=== PATIENT | female | born 1945 | race Caucasian/White ===

== ENCOUNTER 2017-11-27 12:59 | Outpatient (CLI) | payer MEDICARE, MEDICAID ==
[~2017-11-27] VITALS: Ht 152.4 cm; Wt 72.6 kg
[~2017-11-27 12:59] MED LIST: HYDR-565 PO; IBUP-1984 PO; LIDO700A5 TP; LOSA1TAB39 PO; OMEP20CA4 PO; PRED5TAB PO
[2017-11-27] MEDS ORDERED: HYDR-565 PO (14:47)
[2017-11-27] MEDS ORDERED: CALC-950 PO (14:47)
[2017-11-27] MEDS ORDERED: LOSA1TAB36 PO (14:47)
[2017-11-27] MEDS ORDERED: PRE1T PO (14:47)
[2017-11-27] MEDS ORDERED: DULO20CA50 PO (14:47)
[2017-11-27] MEDS ORDERED: IRON1CAP34 PO (14:47)
[2017-11-27] MEDS ORDERED: ASPI-529 PO (14:47)
[2017-11-27 15:18] LABS: PRE OP PROTIME 10.3 SECONDS (9.0-12.0)
[2017-11-27 15:22] LABS: ALBUMIN 3.7 G/DL (3.4-5.0); ALKALINE PHOSPHATASE 64 IU/L (46-116); BLOOD UREA NITROGEN 12 MG/DL (7-18); BUN/CREATININE RATIO 9.4 (6.6-38.0); CALCIUM 8.7 MG/DL (8.5-10.1); CHLORIDE 90 MMOL/L (99-107); CREATININE 1.27 MG/DL (0.40-0.90); PRE OP ALT 17 U/L (30-65); PRE OP ANION GAP 11 (8-16); PRE OP AST 18 U/L (10-37); PRE OP BILIRUB, TOTAL 0.4 MG/DL (0.0-1.0); PRE OP GLUCOSE 122 MG/DL (70-104); PRE OP POTASSIUM 3.7 MMOL/L (3.4-5.1); TOTAL CARBON DIOXIDE 22.7 MMOL/L (24-32); TOTAL PROTEIN 7.4 G/DL (6.4-8.2); eGFR 41 ML/MIN
[2017-11-27 15:26] LABS: BASOPHILS % (AUTO) 0.2 % (0-1); EOSINOPHILS % (AUTO) 0.2 % (0-6); LYMPHOCYTES # (AUTO) 1.1 X10'3 (1.1-4.8); LYMPHOCYTES % (AUTO) 7.7 % (21-51); MEAN CORPUSCULAR HEMOGLOBIN 26.5 PG (27.0-31.0); MEAN CORPUSCULAR VOLUME 82.8 FL (78-98); MEAN PLATELET VOLUME 7.8 FL (7.4-10.4); MONOCYTES # (AUTO) 0.7 X10'3 (0-0.9); NEUTROPHILS # (AUTO) 12.3 X10'3 (1.8-7.7); NEUTROPHILS % (AUTO) 86.9 % (42-75); PRE OP HEMATOCRIT 38.4 % (35.0-45.0); PRE OP HEMOGLOBIN 12.3 g/dL (12.0-16.0); PRE OP PLATELET COUNT 433 X10'3 (140-440); PRE OP SODIUM 124 MMOL/L (135-145); RED BLOOD COUNT 4.63 X10'6 (4.20-5.60); RED CELL DISTRIBUTION WIDTH 18.7 % (11.5-14.5)
[2017-12-07] MEDS ORDERED: HYDR-568 PO (12:47)
[2017-12-08] MEDS ORDERED: ringers solution, lacted 1,000 ML IV SCH (05:00)
[2017-12-08] MEDS ORDERED: Cefazolin 2GM/50ML dext iso,osmotic IVPB IV ONE (05:30)
[2017-12-08] MEDS ORDERED: tranexamic acid inj. 700 MG in normal saline 100ml IV soln 93 ML IV ONE ×2 (05:30→06:30)
[2017-12-08] MEDS ORDERED: VANCOMYCIN INJ 1000 MG in NORMAL SALINE 250ml IV.SOLN IV ONE (05:30)
[2017-12-08] MEDS ORDERED: famotidine 20mg tablet PO ONE (05:30)
== END 2017-11-27 23:59 | disposition home or self-care (01) ==
LOC: PRE-OP 12:59 → EDSTATUS 12-08 13:30
PROVIDERS: ATTEND Orthopaedic Surgery
DX: Z01.812 Encounter for preprocedural laboratory examination (principal); M25.512 Pain in left shoulder; M19.012 Primary osteoarthritis, left shoulder
CPT/HCPCS: 36415; 80053; 85025; 85610; 85730; 86885; 86900; 86901; 87070

== ENCOUNTER 2019-02-08 05:41 | Inpatient (IN) | payer MEDICARE, MEDICAID ==
[2019-01-29 12:27] LABS: CLARITY,URINE SLIGHTLY CLOUDY (Clear); COLOR,URINE YELLOW (Yellow); GLUCOSE, URINE NEGATIVE (Neg); KETONES,URINE NEGATIVE (Neg); LEUKOCYTE ESTERASE ,URINE MODERATE (Neg); NITRITES, URINE NEGATIVE (Neg); OCCULT BLOOD,URINE NEGATIVE (Neg); PROTEIN,URINE NEGATIVE (Neg); UROBILINOGEN,URINE 0.2 E.U/dL (0.2-1.0)
[2019-01-29 12:29] LABS: BASOPHILS # (AUTO) 0.1 X10'3 (0-0.2); BASOPHILS % (AUTO) 0.9 % (0-1); EOSINOPHILS # (AUTO) 0.3 X10'3 (0-0.9); EOSINOPHILS % (AUTO) 2.6 % (0-6); LYMPHOCYTES # (AUTO) 2.7 X10'3 (1.1-4.8); LYMPHOCYTES % (AUTO) 25.4 % (21-51); MEAN CORPUSCULAR HEMOGLOBIN 31.8 PG (27.0-31.0); MEAN CORPUSCULAR HGB CONC 33.5 g/dL (33.0-36.5); MEAN CORPUSCULAR VOLUME 94.8 FL (78-98); MEAN PLATELET VOLUME 7.1 FL (7.4-10.4); MONOCYTES # (AUTO) 0.9 X10'3 (0-0.9); NEUTROPHILS # (AUTO) 6.7 X10'3 (1.8-7.7); NEUTROPHILS % (AUTO) 63.1 % (42-75); PRE OP HEMATOCRIT 42.1 % (35.0-45.0); PRE OP HEMOGLOBIN 14.1 g/dL (12.0-16.0); PRE OP PLATELET COUNT 288 X10'3 (140-440); RED BLOOD COUNT 4.44 X10'6 (4.20-5.60)
[2019-01-29 12:30] LABS: UA COLLECTION TYPE CLN CATCH MIDSTREAM
[2019-01-29 12:38] LABS: BACTERIA,URINE 3+ /HPF (Neg); MUCUS STRANDS MANY /LPF (Neg); RBC,URINE NONE SEEN /HPF (0-2); SQUAMOUS EPITHELIAL CELL,UR MANY /LPF (FEW)
[2019-01-29 12:41] LABS: ALBUMIN 3.6 G/DL (3.4-5.0); ALBUMIN/GLOBULIN RATIO 0.8 (1.1-1.5); ALKALINE PHOSPHATASE 61 IU/L (46-116); BLOOD UREA NITROGEN 19 MG/DL (7-18); BUN/CREATININE RATIO 15.4 (6.6-38.0); CALCIUM 9.4 MG/DL (8.5-10.1); CHLORIDE 103 MMOL/L (99-107); CREATININE 1.23 MG/DL (0.40-0.90); PRE OP ALT 13 U/L (30-65); PRE OP ANION GAP 12 (8-16); PRE OP AST 14 U/L (10-37); PRE OP BILIRUB, TOTAL 0.6 MG/DL (0.0-1.0); PRE OP GLUCOSE 108 MG/DL (70-104); PRE OP POTASSIUM 3.9 MMOL/L (3.4-5.1); PRE OP SODIUM 138 MMOL/L (135-145); TOTAL CARBON DIOXIDE 23.4 MMOL/L (24-32); eGFR 43 ML/MIN
[2019-02-08] VITALS (19 sets, daily range): BP systolic 106–154; BP diastolic 51–93
[~2019-02-08] VITALS: Ht 149.9 cm; Wt 81.4 kg
[~2019-02-08 05:41] MED LIST changes: +DULO20CA50 PO; +HYDR-3965 PO; -HYDR-565 PO; -IBUP-1984 PO; -LIDO700A5 TP; -LOSA1TAB39 PO; -OMEP20CA4 PO; +PRE1T PO; -PRED5TAB PO; +SPIR25TA5 PO; +famotidine 20mg tablet PO ONE; +ringers solution, lacted 1,000 ML IV SCH; +tranexamic acid inj. 740 MG in normal saline 100ml IV soln 100 ML IV ONE; +vancomycin inj 1,500 MG in normal saline 300ml IV soln IV ONE
[2019-02-08] MEDS ORDERED: ketorolac trometh. 30mg/ml inj. ONE (06:40)
[2019-02-08] MEDS ORDERED: ROPIVAcaine 0.5% (5mg/ml) 30ml vial ONE ×3 (06:41→07:27)
[2019-02-08] MEDS ORDERED: cefazolin/dext.iso 2gm/50ml 50 ML IV ONE (06:45)
[2019-02-08] MEDS ORDERED: cloNIDine hcl/PF 100mcg/ml inj ONE (07:19)
[2019-02-08] MEDS ORDERED: propofol inj 20 ML IV ONE (07:23)
[2019-02-08] MEDS ORDERED: MIDAZolam 5mg/5ml vial ONE (07:23)
[2019-02-08] MEDS ORDERED: fentaNYL/PF 50MCG/1 ML 2ML syringe ONE (07:23)
[2019-02-08] MEDS ORDERED: sevoflurane 250ml liquid IH ONE (07:43)
[2019-02-08] MEDS ORDERED: dexamethasone sod phosphate 10mg/ml inj ONE (07:43)
[2019-02-08] MEDS ORDERED: ePHEDrine 50MG/ML INJ. ONE (08:34)
[2019-02-08] MEDS ORDERED: proCHLORperazine 10 MG/2 ml inj IV PRN (09:20)
[2019-02-08] MEDS ORDERED: ringers solution, lacted 1,000 ML IV SCH (09:20)
[2019-02-08] MEDS ORDERED: ondansetron/PF 4mg/2ml inj IV PRN ×2 (09:20→11:30)
[2019-02-08] MEDS ORDERED: meperidine/PF 25mg/ml syringe IV PRN ×3 (09:20)
[2019-02-08] MEDS ORDERED: ROPIVAcaine 0.2%/PF PUMP/bolus 550 ML INTERSCALE SCH (09:21)
[2019-02-08] MEDS: MESSAGE TO NURSING IV NR ×2 (10:00→14:47)
--- NOTE | 2019-02-08 11:09 | NUR ---
Received from OR via BED, accompanied by Anesthesiologist DR PAN and report given by Anesthesiologist. PT DROWSY, DENIES PAIN, LEFT SHOULDER W/DRSG, ICE PACK, SHOULDER WRAP, SLING, CDI. Addendum: 02/08/19 at 1151 by Tiffanie Rizvi RN Amended: Links added. Addendum: 02/08/19 at 1230 by Tiffanie Rizvi RN LATE ENTRY, PTS CHIN REDDENED, BLANCHES, SKIN INTACT.
[2019-02-08] MEDS ORDERED: diphenhydrAMINE 25mg capsule PO PRN ×2 (11:30)
[2019-02-08] MEDS ORDERED: HYDROmorphone inj. 0.5 MG/0.5 ML DISP.SYRIN IV PRN (11:30)
[2019-02-08] MEDS ORDERED: oxyCODONE IR 5mg (immed. release) tablet PO PRN (11:30)
[2019-02-08] MEDS ORDERED: bisacodyl 10mg suppository rectal RC PRN (11:30)
[2019-02-08] MEDS ORDERED: magnesium hydroxide 30ml (MOM) UD suspension PO PRN (11:30)
[2019-02-08] MEDS ORDERED: HYDROmorphone 1 mg/ml syringe IV PRN (11:30)
[2019-02-08] MEDS ORDERED: acetaminophen 325mg tablet PO PRN (11:30)
--- NOTE | 2019-02-08 12:25 | NUR ---
ASSUMED CARE, RECEIVED REPORT FROM BRADY POZO, PT RESTING COMFORTABLY, POST OP VITALS STARTED. REPORTS 0/10 PAIN, WILL CONTINUE TO MONITOR.
--- NOTE | 2019-02-08 12:29 | NUR ---
Report called to receiving nurse. Transferred via BED, NO Belongings, RECEIVING RN AT BEDSIDE TO RECEIVE PT, BLL, CALL LIGHT GIVEN, SIDE RAILS UP 2. Special Issues communicated to receiving nurse. YES. Addendum: 02/08/19 at 1236 by Tiffanie Rizvi RN Amended: Links added.
[2019-02-08] MEDS ORDERED: tranexamic acid inj. 810 MG in normal saline 100ml IV soln 100 ML IV ONE (14:16)
[2019-02-08] MEDS: potassium cl 20mEq in 1/2 NS 1,000 ML IV SCH ×2 (14:41→19:28)
[2019-02-08] MEDS: acetaminophen 325mg tablet PO SCH ×2 (14:42→19:41)
[2019-02-08] MEDS: ceFAZolin 1GM/D5W- ADD-VANTAGE 50 ML IV SCH (16:12)
--- NOTE | 2019-02-08 18:20 | NUR ---
Problems reprioritized. Patient report given, questions answered & plan of care reviewed with IRMA OPZO.
--- NOTE | 2019-02-08 19:00 | NUR ---
Patient in room [facility]TH[facility] 4013. I have received report from Isaiah POZO and had the opportunity to ask questions and assume patient care.
[2019-02-08] MEDS: spironolactone 25 MG tablet PO SCH (19:41)
[2019-02-08] MEDS: oxyCODONE IR 5mg (immed. release) tablet PO PRN (19:43)
[2019-02-08] MEDS ORDERED: vancomycin/NS 1 GM ADD-VANTAGE 250 ML IV SCH (20:00)
[2019-02-08] MEDS ORDERED: sennosides 8.6mg tablet PO SCH (21:00)
[2019-02-09] MEDS: ceFAZolin 1GM/D5W- ADD-VANTAGE 50 ML IV SCH (00:06)
[2019-02-09] MEDS: acetaminophen 325mg tablet PO SCH ×2 (02:26→09:04)
[2019-02-09 06:00] VITALS: BP 171/66
--- NOTE | 2019-02-09 06:15 | NUR ---
Patient in room ORTHO 4013. I have received report from IRMA POZO and had the opportunity to ask questions and assume patient care.
[2019-02-09 06:29] LABS: BASOPHILS % (AUTO) 0.1 % (0-1); EOSINOPHILS % (AUTO) 0 % (0-6); HEMATOCRIT 33.8 % (35.0-45.0); HEMOGLOBIN 11.2 g/dl (12.0-16.0); LYMPHOCYTES # (AUTO) 1.1 X10'3 (1.1-4.8); LYMPHOCYTES % (AUTO) 8.6 % (21-51); MEAN CORPUSCULAR HEMOGLOBIN 31.5 PG (27.0-31.0); MEAN CORPUSCULAR HGB CONC 33.2 g/dL (33.0-36.5); MEAN PLATELET VOLUME 7.7 FL (7.4-10.4); MONOCYTES # (AUTO) 1.1 X10'3 (0-0.9); MONOCYTES % (AUTO) 8.6 % (2-12); NEUTROPHILS # (AUTO) 10.6 X10'3 (1.8-7.7); NEUTROPHILS % (AUTO) 82.7 % (42-75); PLATELET COUNT 214 X10'3 (140-440); RED BLOOD COUNT 3.56 X10'6 (4.20-5.60); RED CELL DISTRIBUTION WIDTH 14.7 % (11.5-14.5); WHITE BLOOD COUNT 12.8 X10'3 (4.5-11.0)
[2019-02-09 06:31] LABS: ANION GAP 10 (8-16); CHLORIDE 100 MMOL/L (99-107); POTASSIUM 4.8 MMOL/L (3.5-5.1); SODIUM 132 MMOL/L (135-145); TOTAL CARBON DIOXIDE 21.6 MMOL/L (24-32)
[2019-02-09] MEDS: potassium cl 20mEq in 1/2 NS 1,000 ML IV SCH ×2 (06:52→11:28)
[2019-02-09] MEDS ORDERED: predniSONE 5mg tablet PO SCH (08:00)
[2019-02-09] MEDS ORDERED: predniSONE 1 mg tablet PO SCH (08:00)
[2019-02-09] MEDS ORDERED: duloxetine 20mg capsule.DR PO SCH (08:00)
[2019-02-09] MEDS ORDERED: aspirin 325mg tablet PO SCH (08:30)
[2019-02-09] MEDS: spironolactone 25 MG tablet PO SCH (09:03)
[2019-02-09] MEDS: oxyCODONE IR 5mg (immed. release) tablet PO PRN (09:06)
--- NOTE | 2019-02-09 10:45 | NUR ---
PATIENT DC HOME SAFELY WITH DAUGHTER AND ALL BELONGINGS IN POSSESSION. PATIENT VERBALIZES UNDERSTANDING OF ALL DISCHARGE INSTRUCTIONS.
[2019-02-10] MEDS ORDERED: acetaminophen 325mg tablet PO PRN (11:30)
== END 2019-02-09 10:45 | disposition home or self-care (01) | DRG 483 ==
LOC: PAS IN 05:41 → EDSTATUS 09:15 → ORTHO 4S 12:23
PROVIDERS: ADMIT Orthopaedic Surgery; ATTEND Orthopaedic Surgery
PROC: 3E0T3BZ Introduction of Anesthetic Agent into Peripheral Nerves and Plexi, Percutaneous Approach (ICD-10-PCS; 2019-02-08)
PROC: 0RRK00Z Replacement of Left Shoulder Joint with Reverse Ball and Socket Synthetic Substitute, Open Approach (ICD-10-PCS; principal; 2019-02-08 07:43)
DX: M19.012 Primary osteoarthritis, left shoulder (principal); D62 Acute posthemorrhagic anemia; M84.412A Pathological fracture, left shoulder, initial encounter for fracture; I10 Essential (primary) hypertension; I25.10 Atherosclerotic heart disease of native coronary artery without angina pectoris; J45.909 Unspecified asthma, uncomplicated; M06.9 Rheumatoid arthritis, unspecified; F32.9 Major depressive disorder, single episode, unspecified; G89.29 Other chronic pain; M54.9 Dorsalgia, unspecified; M75.102 Unspecified rotator cuff tear or rupture of left shoulder, not specified as traumatic; M25.712 Osteophyte, left shoulder; Z96.611 Presence of right artificial shoulder joint; Z96.653 Presence of artificial knee joint, bilateral; M65.812 Other synovitis and tenosynovitis, left shoulder; Z96.642 Presence of left artificial hip joint; E66.9 Obesity, unspecified; M79.7 Fibromyalgia; Z88.0 Allergy status to penicillin; Z88.8 Allergy status to other drugs, medicaments and biological substances; Z88.6 Allergy status to analgesic agent; Z85.3 Personal history of malignant neoplasm of breast; Z87.891 Personal history of nicotine dependence; Z98.51 Tubal ligation status; Z90.49 Acquired absence of other specified parts of digestive tract; Z98.49 Cataract extraction status, unspecified eye; Z68.36 Body mass index [BMI] 36.0-36.9, adult
CPT/HCPCS: 36415; 73020; 80051; 80053; 81001; 82948; 83036; 85025; 87081; 93005; 97116; 97161; 97530; A4565; A4618; A7000; C1776; G0378; J0690; J0735; J1100; J1170; J1885; J2250; J2704; J2795; J3010; J3370; J3480; J7120; J7512